=== PATIENT | female | born 1950 | race American Indian/Alaskan Native ===

== ENCOUNTER 2021-12-25 10:33 | Emergency (ER) | payer OTHER ==
[~2021-12-25] VITALS: Ht 167.6 cm; Wt 70.3 kg
[~2021-12-25 10:33] MED LIST: TRAMADOL HCL50 MG PO
== END 2021-12-25 13:26 ==
LOC: ER 10:33
DX: H92.02 Otalgia, left ear (principal)

== ENCOUNTER 2022-03-27 09:55 | Emergency (ER) | payer OTHER ==
[~2022-03-27] VITALS: Ht 167.6 cm; Wt 71.7 kg
== END 2022-03-27 11:47 | disposition home or self-care (01) ==
LOC: ER 09:55
DX: H66.91 Otitis media, unspecified, right ear (principal)